=== PATIENT | female | born 1995 | race Caucasian/White ===

== ENCOUNTER 2017-05-16 15:03 | Emergency (ER) | payer MEDICAID ==
[~2017-05-16] VITALS: Ht 154.9 cm; Wt 49.0 kg
[2017-05-16 15:10] VITALS: BP 142/75; PULSE 86; RESP 15; TEMP 98.4; O2SAT 98
[2017-05-16] MEDS ORDERED: APRI0.372 PO (17:16)
[2017-05-16 17:20] VITALS: BP 121/72; PULSE 90; RESP 19; TEMP 98.1; O2SAT 97
[2017-05-16] MEDS ORDERED: SODIUM CHLOR 0.9% 1000 ML INJ 1,000 ML IV SCH (17:26)
[2017-05-16] MEDS ORDERED: ONDANSETRON HCL 4 MG/2 ML VIAL IVP ONE (17:30)
--- NOTE | 2017-05-16 17:30 | PD ---
HPI Chief Complaint: GI Complaint Time Seen by Provider: 17:28 Travel History International Travel<30 days: No Contact w/Intl Traveler<30days: No Traveled to known affect area: No History of Present Illness HPI This patient was examined in the presence of a female nurse. 21-year-old female with history of Crohn's disease presents for evaluation of nausea, vomiting, diarrhea. She reports that yesterday morning at work she ate [employer] , specifically ate [place] up eggs, fries and askew. Yesterday evening she developed watery nonbloody diarrhea. Today she looked nausea and vomiting. She reports that 3 other coworkers who ate the same food developed similar symptoms. She endorses some epigastric discomfort from all of the dry heaving. She denies fevers but she has had chills. Denies dysuria, flank pain, vaginal bleeding or discharge. No other complaints. PFSH Past Medical History Anemia: Yes Diminished Hearing: No Gastrointestinal Disorders: Yes (chrons) Musculoskeletal: Yes (SCOLIOSIS) Tetanus Vaccination: Unknown ?: Not LMP: 04/25/2017 : 0 Past Surgical History Other Surgery: Yes (abscess surgery, breast biopsy) Social History Alcohol Use: No Tobacco Use: No Substance Use: No Allergies-Medications (Allergen,Severity, Reaction): Coded Allergies: No Known Allergies (Unverified , 05/16/17) Reported Meds & Prescriptions Reported Meds & Active Scripts Active Zofran (Ondansetron HCl) 4 Mg Tab 4 Mg PO Q6HR PRN Reported Apriso (Mesalamine) 0.375 Gm Caper 1.5 Gm PO DAILY Review of Systems Except as stated in HPI: all other systems reviewed are Neg Physical Exam Narrative GENERAL: Well-developed well-nourished female in no acute distress SKIN: Warm and dry. HEAD: Atraumatic. Normocephalic. EYES: Pupils equal and round. No scleral icterus. No injection or drainage. ENT: No nasal bleeding or discharge. Mucous membranes pink and moist. NECK: Trachea midline. No JVD. CARDIOVASCULAR: Regular rate and rhythm. No murmur appreciated. RESPIRATORY: No accessory muscle use. Clear to auscultation. Breath sounds equal bilaterally. GASTROINTESTINAL: Abdomen soft, mild epigastric tenderness without guarding. No CVA tenderness. MUSCULOSKELETAL: No obvious deformities. No edema. NEUROLOGICAL: Awake and alert. No obvious cranial nerve deficits. Motor grossly within normal limits. Normal speech. Data Data Last Documented VS Vital Signs Date Time Temp Pulse Resp B/P (MAP) Pulse Ox O2 Delivery O2 Flow Rate FiO2 05/16/17 17:20 98.1 90 19 121/72 (88) 97 Orders Orders Ed Urine Pregnancytest Poc (05/16/17 15:11) Ed Urine Pregnancytest Poc (05/16/17 15:37) Complete Blood Count With Diff (05/16/17 17:26) Comprehensive Metabolic Panel (05/16/17 17:26) Lipase (05/16/17 17:26) Iv Access Insert/Monitor (05/16/17 17:26) Ondansetron Inj (Zofran Inj) (05/16/17 17:30) Sodium Chlor 0.9% 1000 Ml Inj (Ns 1000 M (05/16/17 17:26) Labs Laboratory Tests Test 05/16/17 17:50 White Blood Count 8.6 TH/MM3 Red Blood Count 4.84 MIL/MM3 Hemoglobin 14.8 GM/DL Hematocrit 42.4 % Mean Corpuscular Volume 87.6 FL Mean Corpuscular Hemoglobin 30.5 PG Mean Corpuscular Hemoglobin Concent 34.9 % Red Cell Distribution Width 13.1 % Platelet Count 313 TH/MM3 Mean Platelet Volume 8.1 FL Neutrophils (%) (Auto) 63.6 % Lymphocytes (%) (Auto) 27.9 % Monocytes (%) (Auto) 7.3 % Eosinophils (%) (Auto) 0.6 % Basophils (%) (Auto) 0.6 % Neutrophils # (Auto) 5.5 TH/MM3 Lymphocytes # (Auto) 2.4 TH/MM3 Monocytes # (Auto) 0.6 TH/MM3 Eosinophils # (Auto) 0.1 TH/MM3 Basophils # (Auto) 0.0 TH/MM3 CBC Comment DIFF FINAL Differential Comment Blood Urea Nitrogen 11 MG/DL Creatinine 0.63 MG/DL Random Glucose 85 MG/DL Total Protein 8.6 GM/DL Albumin 4.1 GM/DL Calcium Level 9.2 MG/DL Alkaline Phosphatase 66 U/L Aspartate Amino Transf (AST/SGOT) 10 U/L Alanine Aminotransferase (ALT/SGPT) 15 U/L Total Bilirubin 0.9 MG/DL Sodium Level 137 MEQ/L Potassium Level 3.8 MEQ/L Chloride Level 103 MEQ/L Carbon Dioxide Level 26.3 MEQ/L Anion Gap 8 MEQ/L Estimat Glomerular Filtration Rate 120 ML/MIN Lipase 119 U/L MDM Medical Decision Making Medical Screen Exam Complete: Yes Emergency Medical Condition: Yes Medical Record Reviewed: Yes Differential Diagnosis Gastroenteritis, dehydration, electrolyte abnormality, pancreatitis, gastritis Narrative Course Physical examination is reassuring. She appears well. Her symptoms and history are certainly consistent with gastroenteritis. Plan is for basic lab work, she will be given IV fluids and Zofran. The patient's lab work is unremarkable. She feels significantly improved after Zofran with resolution of her nausea. She is stable for discharge. Diagnosis Primary Impression: Gastroenteritis Additional Instructions: Slowly advance diet as tolerated. Zofran for nausea. Return for any acutely new or worsening symptoms. Med/Other Pt SpecificInfo: Prescription(s) given Scripts Ondansetron (Zofran) 4 Mg Tab 4 MG PO Q6HR Y for NAUSEA OR VOMITING, #20 TAB 0 Refills Prov: Rocky Sr MD 05/16/17 Disposition: 01 DISCHARGE HOME Condition: Stable Jesse Eden May 16, 2017 17:30
[2017-05-16 18:05] LABS: AUTOMATED NEUTROPHIL # 5.5 TH/MM3 (1.8-7.7); BASOPHIL % 0.6 % (0.0-2.0); EOSINOPHIL # 0.1 TH/MM3 (0-0.4); EOSINOPHIL % 0.6 % (0.0-4.0); HEMATOCRIT 42.4 % (35.0-46.0); HEMO FLAGS DIFF FINAL; LYMPH % 27.9 % (9.0-44.0); LYMPHOCYTE # 2.4 TH/MM3 (1.0-4.8); MEAN CELL VOLUME 87.6 FL (80.0-100.0); MEAN CORPUSCULAR HEMOGLOBIN 30.5 PG (27.0-34.0); MEAN CORPUSCULAR HGB CONC 34.9 % (32.0-36.0); MONO % 7.3 % (0.0-8.0); NEUT % 63.6 % (16.0-70.0); PLATELET COUNT 313 TH/MM3 (150-450); RED BLOOD COUNT 4.84 MIL/MM3 (4.00-5.30); RED CELL DISTRIBUTION WIDTH 13.1 % (11.6-17.2); WHITE BLOOD COUNT 8.6 TH/MM3 (4.0-11.0)
[2017-05-16 18:32] LABS: ANION GAP 8 MEQ/L (5-15); AST (GOT) 10 U/L (16-38); BICARBONATE 26.3 MEQ/L (21.0-32.0); BLOOD UREA NITROGEN 11 MG/DL (7-18); CHLORIDE 103 MEQ/L (98-107); GLOMERULAR FILTRATION RATE 120 ML/MIN (>89); POTASSIUM 3.8 MEQ/L (3.5-5.1); SODIUM (NA) 137 MEQ/L (136-145)
[2017-05-16 18:41] LABS: ALKALINE PHOSPHATASE 66 U/L (45-117); ALT (GPT) 15 U/L (9-42); TOTAL BILIRUBIN ADULT 0.9 MG/DL (0.2-1.0)
[2017-05-16] MEDS ORDERED: ZOFR4TAB PO (18:58)
== END 2017-05-16 19:17 | disposition home or self-care (01) ==
LOC: NEPD 15:03
DX: K52.9 Noninfective gastroenteritis and colitis, unspecified (principal); K50.90 Crohn's disease, unspecified, without complications
CPT/HCPCS: 80053; 83690; 84703; 85025; 96361; 96374; 99285; J2405; J7030